=== PATIENT | male | born 1965 | race Caucasian/White ===

== ENCOUNTER 2021-09-05 23:40 | Inpatient (IN) | payer OTHER ==
[~2021-09-05] VITALS: Ht 180.3 cm; Wt 90.1 kg
[2021-09-05 23:50] VITALS: BP_SYST 138
[2021-09-06] VITALS (7 sets, daily range): BP systolic 111–135
[2021-09-06] MEDS ORDERED: ASPIRIN 81 MG TAB.CHEW PO ONE (00:15)
[2021-09-06 00:37] LABS: BASOPHILS % (AUTO) 0.6 % (0.0-2.0); EOSINOPHILS # (AUTO) 0.1 K/uL (0.0-0.4); EOSINOPHILS % (AUTO) 1.5 % (0.0-4.0); HEMATOCRIT 47.4 % (36-54); HEMOGLOBIN 15.1 g/dL (14.0-18.0); LYMPHOCYTES # (AUTO) 1.8 K/uL (1.0-5.5); LYMPHOCYTES % (AUTO) 28.2 % (20.5-51.5); MEAN CORPUSCULAR HEMOGLOBIN 29 pg (27-31); MEAN CORPUSCULAR HGB CONC 32 % (32-36); MEAN CORPUSCULAR VOLUME 91 fL (79.0-98.0); MONOCYTES # (AUTO) 0.5 K/uL (0.0-1.0); NEUTROPHILS % (AUTO) 61.7 % (40.0-70.0); PLATELET COUNT (AUTO) 203 K/uL (130-430); RED BLOOD CELL COUNT(AUTO) 5.24 MIL/uL (4.2-6.2); RED CELL DISTRIBUTION WIDTH 13.9 % (9.0-15.0); WHITE BLOOD COUNT (AUTO) 6.5 K/uL (4.8-10.8)
[2021-09-06 00:52] LABS: ANION GAP 8 (5-15); CALCIUM 9.9 mg/dL (8.4-11.0); CHLORIDE 100 mmol/L (98-107); CREATININE 1.26 mg/dL (0.55-1.30); GLUCOSE 357 mg/dL (70-99); POTASSIUM 4.3 mmol/L (3.5-5.1); SODIUM SERUM 138 mmol/L (136-145); UREA NITROGEN, BLOOD 19 mg/dL (8-21)
[2021-09-06 00:54] LABS: GFR AFRICAN AMERICAN 76 mL/min (>90)
[2021-09-06 00:57] LABS: ALANINE AMINOTRANSFERASE 23 U/L (12-78); ALBUMIN 3.6 g/dL (3.4-4.8); ASPARTATE AMINOTRANSFERASE 12 U/L (10-37); TOTAL BILIRUBIN 0.3 mg/dL (0.0-1.0)
[2021-09-06] MEDS ORDERED: LORazepam 2 MG/ML VIAL IM ONE (02:15)
[2021-09-06] MEDS ORDERED: INSU100I4 SUBQ (02:17)
[2021-09-06] MEDS ORDERED: NITROGLYCERIN 0.4 MG TAB.SUBL SL PRN ×2 (02:30→06:45)
[2021-09-06] MEDS ORDERED: ACETAMINOPHEN 325 MG TABLET PO PRN (06:45)
[2021-09-06] MEDS ORDERED: GLUCOSE (DEXTROSE) ORAL GEL -Adults PO PRN (06:45)
[2021-09-06] MEDS ORDERED: D5W 1,000 ML IV PRN (06:45)
[2021-09-06] MEDS ORDERED: DEXTROSE 50% JECT 50 ML DISP.SYRIN IVP PRN (06:45)
[2021-09-06] MEDS ORDERED: *LOVENOX 1MG/KG Q12H/PHARMACY XX ONE (07:00)
[2021-09-06] MEDS: INSULIN REGULAR, HUMAN 100 UNITS/ML, 10 ML VIAL (humuLIN R) SUBCUT PRN ×4 (07:12→22:08)
[2021-09-06] MEDS ORDERED: ENOXAPARIN SODIUM 30 MG/0.3 ML SYRINGE SUBCUT SCH (09:00)
[2021-09-06] MEDS ORDERED: METOPROLOL TARTRATE 25 MG TABLET PO SCH (09:00)
[2021-09-06] MEDS ORDERED: SPIRONOLACTONE 25 MG TABLET (ALDACTONE) PO ONE (09:15)
[2021-09-06] MEDS ORDERED: ATORVASTATIN 20 MG TABLET PO ONE (09:15)
[2021-09-06] MEDS ORDERED: LOSARTAN POTASSIUM 50 MG TABLET (COZAAR) PO ONE (09:15)
[2021-09-06] MEDS ORDERED: CARVEDILOL 6.25 MG TABLET (COREG) PO ONE (09:15)
[2021-09-06] MEDS: ENOXAPARIN SODIUM 100 MG/ML SYRINGE SUBCUT SCH ×2 (09:57→22:07)
[2021-09-06] MEDS: ASPIRIN 81 MG TAB.CHEW PO SCH (09:58)
[2021-09-06] MEDS ORDERED: GLIMEPIRIDE 2 MG TABLET PO ONE (17:00)
[2021-09-06] MEDS: CARVEDILOL 6.25 MG TABLET (COREG) PO SCH (21:58)
[2021-09-07 00:06] VITALS: BP_SYST 118
[2021-09-07 07:15] LABS: BASOPHILS % (AUTO) 0.3 % (0.0-2.0); EOSINOPHILS # (AUTO) 0.1 K/uL (0.0-0.4); EOSINOPHILS % (AUTO) 1.8 % (0.0-4.0); HEMATOCRIT 47.5 % (36-54); HEMOGLOBIN 15.9 g/dL (14.0-18.0); LYMPHOCYTES # (AUTO) 3.1 K/uL (1.0-5.5); LYMPHOCYTES % (AUTO) 38.5 % (20.5-51.5); MEAN CORPUSCULAR HEMOGLOBIN 30 pg (27-31); MEAN CORPUSCULAR HGB CONC 33 % (32-36); MEAN CORPUSCULAR VOLUME 91 fL (79.0-98.0); MONOCYTES # (AUTO) 0.6 K/uL (0.0-1.0); NEUTROPHILS # (AUTO) 4.1 K/uL (1.8-7.7); NEUTROPHILS % (AUTO) 51.4 % (40.0-70.0); PLATELET COUNT (AUTO) 186 K/uL (130-430); RED BLOOD CELL COUNT(AUTO) 5.25 MIL/uL (4.2-6.2); RED CELL DISTRIBUTION WIDTH 13.5 % (9.0-15.0)
[2021-09-07 08:03] VITALS: BP_SYST 120
[2021-09-07] MEDS: ASPIRIN 81 MG TAB.CHEW PO SCH (08:28)
[2021-09-07] MEDS: CARVEDILOL 6.25 MG TABLET (COREG) PO SCH (08:29)
[2021-09-07 08:30] LABS: ALBUMIN 2.9 g/dL (3.4-4.8); CALCIUM 8.6 mg/dL (8.4-11.0); CREATININE 1.15 mg/dL (0.55-1.30); POTASSIUM 4.2 mmol/L (3.5-5.1); TOTAL BILIRUBIN 0.3 mg/dL (0.0-1.0)
[2021-09-07] MEDS: ENOXAPARIN SODIUM 100 MG/ML SYRINGE SUBCUT SCH (08:35)
[2021-09-07] MEDS ORDERED: SPIRONOLACTONE 25 MG TABLET (ALDACTONE) PO SCH (09:00)
[2021-09-07] MEDS ORDERED: ATORVASTATIN 20 MG TABLET PO SCH (09:00)
[2021-09-07] MEDS ORDERED: GLIMEPIRIDE 2 MG TABLET PO SCH (09:00)
[2021-09-07] MEDS ORDERED: LOSARTAN POTASSIUM 50 MG TABLET (COZAAR) PO SCH (09:00)
[2021-09-07 10:57] LABS: THYROID STIMULATING HORMONE 1.34 uIu/mL (0.36-3.74)
[2021-09-07 12:00] VITALS: BP_SYST 121
[2021-09-07] MEDS: INSULIN REGULAR, HUMAN 100 UNITS/ML, 10 ML VIAL (humuLIN R) SUBCUT PRN (12:10)
[2021-09-07 12:21] VITALS: BP_SYST 121
[2021-09-07] MEDS ORDERED: LOSA50TA3 PO (12:28)
[2021-09-07] MEDS ORDERED: LIP40 PO (12:28)
[2021-09-07] MEDS ORDERED: SPIR25TA PO (12:28)
[2021-09-07] MEDS ORDERED: CARV6.2554 PO (12:29)
[2021-09-07] MEDS ORDERED: ASPI-1393 PO (12:30)
[2021-09-07] MEDS ORDERED: NITSL SL (12:31)
== END 2021-09-07 12:50 | disposition home or self-care (01) | DRG 281 ==
LOC: SED 23:40 → STU 09-06 02:19
PROVIDERS: ADMIT Family Medicine; ATTEND Family Medicine
DX: I21.4 Non-ST elevation (NSTEMI) myocardial infarction (principal); I42.0 Dilated cardiomyopathy; E11.9 Type 2 diabetes mellitus without complications; F15.10 Other stimulant abuse, uncomplicated; F17.210 Nicotine dependence, cigarettes, uncomplicated; I10 Essential (primary) hypertension; I25.10 Atherosclerotic heart disease of native coronary artery without angina pectoris; Z20.822 Contact with and (suspected) exposure to COVID-19; E78.00 Pure hypercholesterolemia, unspecified; I24.8 Other forms of acute ischemic heart disease; J44.9 Chronic obstructive pulmonary disease, unspecified; Z79.4 Long term (current) use of insulin; Z79.82 Long term (current) use of aspirin; Z91.14 Patient's other noncompliance with medication regimen; Z88.0 Allergy status to penicillin; Z79.899 Other long term (current) drug therapy
CPT/HCPCS: 36415; 71045; 80053; 80061; 82550; 82962; 83690; 83735; 83880; 84443; 84484; 85025; 85379; 93005; 93306; 96372; 99285; G0378; J1650; J1815; J2060